=== PATIENT | female | born 1940 | race Caucasian/White ===

== ENCOUNTER → 2020-05-22 | Outpatient (CLI) | payer OTHER ==
[~2020-05-22] MED LIST: KAPSPARGO SPRIN25 MG PO; LISINOPRIL20 MG PO; NAMENDA10 MG PO; NORCO 5-325 TA1 EACH PO; PRAVASTATIN SOD40 MG PO
== END ==
LOC: RAD 10:05
DX: Z87.442 Personal history of urinary calculi (principal); N28.89 Other specified disorders of kidney and ureter
CPT/HCPCS: 74018

== ENCOUNTER → 2020-10-03 | Outpatient (CLI) | payer MEDICARE, OTHER | LOC: EXRD 14:17 | DX: E04.2 Nontoxic multinodular goiter (principal) | CPT/HCPCS: 76536 ==

== ENCOUNTER 2020-11-29 08:26 | Emergency (ER) | payer MEDICARE, OTHER ==
[~2020-11-29 08:26] MED LIST changes: +METOPROLOL SUCC25 MG PO
[2020-11-29 09:45] LABS: HEMOGLOBIN 14.5 gm/dl (12.3-15.3); RED BLOOD COUNT 4.87 M/UL (4.00-5.10); WHITE BLOOD COUNT 9.3 K/UL (4.5-11.0)
[2020-11-29 10:09] LABS: BUN/CREATININE RATIO 21 (0-10)
[2020-11-29] MEDS ORDERED: ANTIVERT 12.512.5 MG PO (13:04)
[2020-11-29] MEDS ORDERED: ZOFRAN ODT 4 MG4 MG SL (13:04)
[2020-11-30] MEDS ORDERED: ALENDRONATE SOD70 MG PO (14:40)
[2020-11-30] MEDS ORDERED: AMLODIPINE BESYL5 MG PO (14:40)
[2020-11-30] MEDS ORDERED: ZETIA10 MG PO (14:41)
[2020-12-01] MEDS ORDERED: LISINOPRIL5 MG PO (12:23)
== END 2020-11-29 13:14 | disposition home or self-care (01) ==
LOC: ER1 08:26
PROVIDERS: Student in an Organized Health Care Education/Training Program
DX: R53.81 Other malaise (principal); R53.83 Other fatigue; R11.0 Nausea; I10 Essential (primary) hypertension
CPT/HCPCS: 71045; 80053; 82550; 82553; 83874; 84484; 85025; 93005; 99284; Q9967

== ENCOUNTER 2020-11-30 10:28 | Observation (INO) | payer MEDICARE, OTHER ==
[~2020-11-30] VITALS: Ht 162.6 cm; Wt 57.2 kg
[~2020-11-30 10:28] MED LIST changes: +ANTIVERT 12.512.5 MG PO; +ZOFRAN ODT 4 MG4 MG SL
[2020-11-30 10:54] LABS: HEMOGLOBIN 14.6 gm/dl (12.3-15.3); RED BLOOD COUNT 4.84 M/UL (4.00-5.10); WHITE BLOOD COUNT 7.7 K/UL (4.5-11.0)
[2020-11-30 11:17] LABS: BUN/CREATININE RATIO 22 (0-10)
[2020-11-30] MEDS ORDERED: ALENDRONATE SOD70 MG PO (14:40)
[2020-11-30] MEDS ORDERED: AMLODIPINE BESYL5 MG PO (14:40)
[2020-11-30] MEDS ORDERED: ZETIA10 MG PO (14:41)
[2020-12-01 02:55] LABS: HEMOGLOBIN 14.3 gm/dl (12.3-15.3); RED BLOOD COUNT 4.77 M/UL (4.00-5.10); WHITE BLOOD COUNT 6.4 K/UL (4.5-11.0)
[2020-12-01 03:21] LABS: BUN/CREATININE RATIO 21 (0-10)
[2020-12-01] MEDS ORDERED: LISINOPRIL5 MG PO (12:23)
== END 2020-12-01 14:14 | disposition home or self-care (01) ==
LOC: ER1 10:28 → MED SURG 4 14:12 → CDU 14:12 → MED SURG 4 16:02
PROVIDERS: Student in an Organized Health Care Education/Training Program; ADMIT Internal Medicine
DX: R55 Syncope and collapse (principal); I49.5 Sick sinus syndrome; I10 Essential (primary) hypertension; I34.0 Nonrheumatic mitral (valve) insufficiency; I51.89 Other ill-defined heart diseases; E78.5 Hyperlipidemia, unspecified; R53.81 Other malaise; M81.0 Age-related osteoporosis without current pathological fracture; Z20.822 Contact with and (suspected) exposure to COVID-19; Z88.0 Allergy status to penicillin; Z88.6 Allergy status to analgesic agent; Z88.5 Allergy status to narcotic agent; Z79.899 Other long term (current) drug therapy; Z87.891 Personal history of nicotine dependence; Z90.49 Acquired absence of other specified parts of digestive tract; Z90.710 Acquired absence of both cervix and uterus
CPT/HCPCS: ECHO; 36415; 70450; 70551; 71045; 80048; 80053; 81001; 82550; 82553; 83735; 83874; 83880; 84100; 84439; 84443; 84484; 85025; 85027; 85379; 87040; 93005; 93270; 93306; 93880; 97161; 97165; 99285; G0378; J1650; Q9967; U0002

== ENCOUNTER → 2020-12-05 | Outpatient (CLI) | payer MEDICARE, OTHER ==
[~2020-12-05] MED LIST changes: +ALENDRONATE SOD70 MG PO; +AMLODIPINE BESYL5 MG PO; +ELIQUIS 5 MG TAB5 MG PO; +LISINOPRIL5 MG PO; +MULTAQ 400 MG400 MG PO; +RANEXA500 MG PO; +ZETIA10 MG PO
== END ==
LOC: CATH 10:00
DX: R55 Syncope and collapse (principal); I49.5 Sick sinus syndrome; I10 Essential (primary) hypertension; E78.5 Hyperlipidemia, unspecified; Z20.822 Contact with and (suspected) exposure to COVID-19
CPT/HCPCS: U0002

== ENCOUNTER 2020-12-07 14:07 | Observation (INO) | payer MEDICARE, OTHER ==
[~2020-12-07] VITALS: Ht 162.6 cm; Wt 57.6 kg
[~2020-12-07 14:07] MED LIST changes: -ELIQUIS 5 MG TAB5 MG PO; -MULTAQ 400 MG400 MG PO; -RANEXA500 MG PO
[2020-12-07 15:07] LABS: RED BLOOD COUNT 4.95 M/UL (4.00-5.10); WHITE BLOOD COUNT 5.9 K/UL (4.5-11.0)
[2020-12-07 15:27] LABS: BUN/CREATININE RATIO 17 (0-10)
[2020-12-07] MEDS ORDERED: LISINOPRIL5 MG PO (16:47)
[2020-12-08 02:18] LABS: HEMOGLOBIN 13.7 gm/dl (12.3-15.3); RED BLOOD COUNT 4.63 M/UL (4.00-5.10); WHITE BLOOD COUNT 6.1 K/UL (4.5-11.0)
[2020-12-08 02:44] LABS: BUN/CREATININE RATIO 19 (0-10)
[2020-12-10] MEDS ORDERED: RANEXA500 MG PO (12:16)
[2020-12-10] MEDS ORDERED: ELIQUIS 5 MG TAB5 MG PO (12:16)
[2020-12-10] MEDS ORDERED: MULTAQ 400 MG400 MG PO (12:16)
== END 2020-12-10 14:21 | disposition home or self-care (01) ==
LOC: ER1 14:07 → CDU 16:15 → PROG CARE 16:15
PROVIDERS: Emergency Medicine; Physician Assistant Medical; ADMIT Internal Medicine
DX: R55 Syncope and collapse (principal); I49.5 Sick sinus syndrome; I48.0 Paroxysmal atrial fibrillation; I10 Essential (primary) hypertension; E78.5 Hyperlipidemia, unspecified; R53.1 Weakness; I48.91 Unspecified atrial fibrillation; E87.6 Hypokalemia; Z20.822 Contact with and (suspected) exposure to COVID-19; Z90.49 Acquired absence of other specified parts of digestive tract; Z85.09 Personal history of malignant neoplasm of other digestive organs; Z88.5 Allergy status to narcotic agent; Z88.6 Allergy status to analgesic agent; Z88.0 Allergy status to penicillin; Z79.899 Other long term (current) drug therapy; Z87.891 Personal history of nicotine dependence; Z90.710 Acquired absence of both cervix and uterus
CPT/HCPCS: 36415; 71045; 78452; 80048; 80053; 82550; 82553; 83735; 84484; 85025; 85027; 93005; 96372; 99285; A9502; G0008; G0378; G0480; J1650; J2785; U0002

== ENCOUNTER 2020-12-28 09:11 | Emergency (ER) | payer MEDICARE, OTHER ==
[~2020-12-28 09:11] MED LIST changes: +ELIQUIS 5 MG TAB5 MG PO; +MULTAQ 400 MG400 MG PO; +RANEXA500 MG PO
[2020-12-28 10:06] LABS: RED BLOOD COUNT 4.7 M/UL (4.00-5.10); WHITE BLOOD COUNT 8.4 K/UL (4.5-11.0)
[2020-12-28 10:39] LABS: BUN/CREATININE RATIO 24 (0-10)
[2020-12-28 12:15] LABS: ADENOVIRUS F 40/41 Not Detected (Negative); ASTROVIRUS Not Detected (Negative); CAMPYLOBACTER Not Detected (Negative); CLOSTRIDIUM DIFFICILE TOX A/B Not Detected (Negative); CRYPTOSPORIDIUM Not Detected (Negative); E.COLI 0157 Not Detected (Negative); ENTAMOEBA HISTOLYTICA Not Detected (Negative); ENTEROAGGREGATIVE E.COLI (EAEC Not Detected (Negative); ENTEROPATHOGENIC E.COLI (EPEC) Not Detected (Negative); ENTEROTOXIGENIC E.COLI (ETEC) Not Detected (Negative); GIARDIA LAMBLIA Not Detected (Negative); NOROVIRUS GI/GII Not Detected (Negative); PLESIOMONAS SHIGELLOIDES Not Detected (Negative); ROTOVIRUS A Not Detected (Negative); SALMONELLA Not Detected (Negative); SAPOVIRUS Not Detected (Negative); SHIG/ENTEROINVAS.ECOLI (EIEC) Not Detected (Negative); SHIGA-LIK TOX.PRO.E.COLI (STEC Not Detected (Negative); VIBRIO Not Detected (Negative); VIBRIO CHOLERAE Not Detected (Negative); YERSINIA ENTEROCOLITICA Not Detected (Negative)
[2020-12-28] MEDS ORDERED: PROBIOTIC & AC1 EACH PO (16:33)
== END 2020-12-28 16:55 | disposition home or self-care (01) ==
LOC: ER1 09:11
PROVIDERS: Physician Assistant
DX: R19.7 Diarrhea, unspecified (principal); R53.1 Weakness; Z20.822 Contact with and (suspected) exposure to COVID-19; I48.91 Unspecified atrial fibrillation; Z88.0 Allergy status to penicillin; Z79.01 Long term (current) use of anticoagulants
CPT/HCPCS: 71045; 80053; 81001; 82550; 82553; 83605; 83690; 83874; 84484; 85025; 87086; 87507; 93005; 99284; U0002

== ENCOUNTER → 2021-01-24 | Outpatient (CLI) | payer MEDICARE, OTHER ==
[~2021-01-24] MED LIST changes: +PROBIOTIC & AC1 EACH PO
== END ==
LOC: CATH 07:19
DX: I25.119 Atherosclerotic heart disease of native coronary artery with unspecified angina pectoris (principal); I34.0 Nonrheumatic mitral (valve) insufficiency; I48.0 Paroxysmal atrial fibrillation; I49.5 Sick sinus syndrome; I49.1 Atrial premature depolarization; E78.5 Hyperlipidemia, unspecified; I10 Essential (primary) hypertension; R91.8 Other nonspecific abnormal finding of lung field; Z79.01 Long term (current) use of anticoagulants; Z79.899 Other long term (current) drug therapy; Z85.09 Personal history of malignant neoplasm of other digestive organs; Z88.6 Allergy status to analgesic agent; Z88.0 Allergy status to penicillin; Z88.5 Allergy status to narcotic agent; Z87.891 Personal history of nicotine dependence
CPT/HCPCS: 99152; C1769; C1894; J1644; J2250; J3010; J7030; J7120; Q9965